=== PATIENT | male | born 1940 | race Caucasian/White ===

== ENCOUNTER → 2017-09-02 | Outpatient (CLI) | payer MEDICARE ==
[~2017-09-02] MED LIST: ALBU0.63 IH; AMLO5TAB2 PO; ASPI-555 PO; BENZ-51 PO; FENO200C PO; GUAI120L62 PO; INSLAN SQ; IPRA3AMP4 IH; LEVO500T89 PO; LIRAGLUTIDE; LISI-613 PO; METF500T6 PO; MULT-40 PO; OMEG-125 PO; OMEG1CAP6 PO; REGADENOSON 0.4 MG/5 ML PF SYG IVP SCH; SIMV40TA59 PO
== END | disposition home or self-care (01) ==
LOC: SHCH 08:52
PROVIDERS: ATTEND Internal Medicine Cardiovascular Disease
DX: I10 Essential (primary) hypertension (principal); I20.9 Angina pectoris, unspecified
CPT/HCPCS: 78452; 93017; 96374; A9500 ×2; J2785

== ENCOUNTER → 2022-01-02 | Outpatient (CLI) | payer OTHER ==
[~2022-01-02] MED LIST changes: +AMLO-257 PO; -AMLO5TAB2 PO; -ASPI-555 PO; +ASPI-556 PO; -BENZ-51 PO; +BENZ-70 PO; -FENO200C PO; +FENO200C28 PO; +IPRA3AMP24 IH; -IPRA3AMP4 IH; -LEVO500T89 PO; +LEVO500T90 PO; -LISI-613 PO; +LISI20TA24 PO; +METF-444 PO; -METF500T6 PO; -REGADENOSON 0.4 MG/5 ML PF SYG IVP SCH
== END | disposition home or self-care (01) ==
LOC: RAH 09:36
PROVIDERS: ATTEND Orthopaedic Surgery
DX: S83.232A Complex tear of medial meniscus, current injury, left knee, initial encounter (principal); M17.12 Unilateral primary osteoarthritis, left knee; M23.92 Unspecified internal derangement of left knee; X58.XXXA Exposure to other specified factors, initial encounter; Y93.89 Activity, other specified; Y92.89 Other specified places as the place of occurrence of the external cause; Y99.8 Other external cause status
CPT/HCPCS: 73721

== ENCOUNTER 2022-01-11 17:51 | Emergency (ER) | payer OTHER ==
[~2022-01-11] VITALS: Ht 172.7 cm; Wt 99.8 kg
[2022-01-11] MEDS ORDERED: LORATADINE 10 MG TABLET PO SCH (18:30)
[2022-01-11] MEDS ORDERED: SOLU-MEDROL 40MG VIAL IVP ONE (18:30)
[2022-01-11] MEDS ORDERED: FLUTICASONE PROPIONATE 50MCG/SPRAY 16 GM BOTTLE EN SCH (18:30)
[2022-01-11 18:54] LABS: BASOPHILS % (AUTO) 0.9 % (0.0-5.0); EOSINOPHILS % (AUTO) 4.5 % (0.0-8.0); LYMPHOCYTES % (AUTO) 36.5 % (21.0-51.0); MEAN CORPUSCULAR HEMOGLOBIN 28.9 pg (27.0-33.0); MEAN CORPUSCULAR HGB CONC 33.8 g/dL (32.0-36.0); MEAN CORPUSCULAR VOLUME 85.6 fL (79-99); MONOCYTES % (AUTO) 14.5 % (3.0-13.0); NEUTROPHILS % (AUTO) 43.3 % (40.0-77.0); PLATELET COUNT (AUTO) 219 K/uL (130-400); RED BLOOD CELL COUNT(AUTO) 5.26 MIL/uL (4.50-6.20); RED CELL DISTRIBUTION WIDTH 13.4 % (11.0-15.5); WHITE BLOOD COUNT (AUTO) 8.9 K/uL (4.8-10.8)
[2022-01-11 19:07] VITALS: BP 163/74
[2022-01-11 19:12] LABS: B-TYPE NATRIURETIC PEPTIDE 26 pg/mL (0-100)
[2022-01-11 19:13] LABS: ALBUMIN 3.4 g/dL (3.5-5.0); BILIRUBIN,TOTAL 0.4 mg/dL (0.2-1.0); TOTAL PROTEIN, SERUM 6.8 g/dL (6.0-8.3)
[2022-01-11] MEDS ORDERED: BENZ-39 PO (19:22)
== END 2022-01-11 19:53 | disposition home or self-care (01) ==
LOC: EDH 17:51
DX: U07.1 COVID-19 (principal); E11.9 Type 2 diabetes mellitus without complications; I10 Essential (primary) hypertension; Z79.4 Long term (current) use of insulin; Z79.899 Other long term (current) drug therapy; Z79.84 Long term (current) use of oral hypoglycemic drugs; Z79.82 Long term (current) use of aspirin; Z90.89 Acquired absence of other organs
CPT/HCPCS: 36415; 71045; 80053; 83880; 84484; 85025; 87635; 87804 ×2; 93005; 96374; 99285; C9803; J2920

== ENCOUNTER 2022-03-04 06:54 | Day surgery (SDC) | payer OTHER ==
[2022-03-02 10:30] VITALS: BP 204/106
[2022-03-02 10:42] LABS: BASOPHILS % (AUTO) 0.8 % (0.0-5.0); EOSINOPHILS % (AUTO) 3.4 % (0.0-8.0); HEMATOCRIT 45.9 % (42-54); LYMPHOCYTES % (AUTO) 34.5 % (21.0-51.0); MEAN CORPUSCULAR HEMOGLOBIN 29.4 pg (27.0-33.0); MEAN CORPUSCULAR HGB CONC 34.2 g/dL (32.0-36.0); MONOCYTES % (AUTO) 12.5 % (3.0-13.0); NEUTROPHILS % (AUTO) 48.4 % (40.0-77.0); PLATELET COUNT (AUTO) 212 K/uL (130-400); RED BLOOD CELL COUNT(AUTO) 5.34 MIL/uL (4.50-6.20); WHITE BLOOD COUNT (AUTO) 7.6 K/uL (4.8-10.8)
[2022-03-04] VITALS (16 sets, daily range): BP systolic 130–171; BP diastolic 57–84
[~2022-03-04] VITALS: Ht 172.7 cm; Wt 100.7 kg
[~2022-03-04 06:54] MED LIST changes: -ALBU0.63 IH; +ASCO500C18 PO; -BENZ-70 PO; +BETA1TAB18 PO; +CEFAZOLIN SODIUM 1 GM VIAL IVP SCH; +CHOL100046 PO; +CLON1PAT13 TD; -FENO200C28 PO; +FINA5TAB41 PO; +FISH1CAP50 PO; -GUAI120L62 PO; +INSU3INS3 SQ; -IPRA3AMP24 IH; +ISOS30TA92 PO; -LEVO500T90 PO; -LISI20TA24 PO; +LISI40TA9 PO; -MULT-40 PO; +NAPR-1023 PO; -OMEG-125 PO; -OMEG1CAP6 PO; +TAMS-1 PO; +ZINC220T4 PO
[2022-03-04] MEDS ORDERED: 0.9%NACL 1000ML 1,000 ML IV ONE (07:24)
[2022-03-04] MEDS ORDERED: DEXAMETHASONE SOD PHOSPHATE 10MG/ML 1ML VIAL ONE (08:33)
[2022-03-04] MEDS ORDERED: LIDOCAINE PF 100MG/5ML (2%) SYRINGE 5ML ONE ×3 (08:33→08:35)
[2022-03-04] MEDS ORDERED: GLYCOPYRROLATE 1 MG/5 ML SYRINGE ONE ×3 (08:34→09:34)
[2022-03-04] MEDS ORDERED: NEOSTIGMINE 5MG/5ML SYR IV ONE ×2 (08:34→09:34)
[2022-03-04] MEDS ORDERED: FENTANYL CITRATE PF 50 MCG/1 ML 2ML VIAL ONE (08:34)
[2022-03-04] MEDS ORDERED: ROCURONIUM 10MG/1ML SYR 10 MG/ML ML ONE (08:34)
[2022-03-04] MEDS ORDERED: PROPOFOL 10 MG/ML 20ML VIAL IV ONE (08:34)
[2022-03-04] MEDS ORDERED: EPHEDRINE SULFATE 50 MG/ML AMPULE ONE (09:12)
[2022-03-04] MEDS ORDERED: CEPH500B PO (09:52)
[2022-03-04] MEDS ORDERED: ACET-2079 PO (09:52)
== END 2022-03-04 11:35 | disposition home or self-care (01) ==
LOC: DAH 06:54
PROVIDERS: ATTEND Orthopaedic Surgery
DX: S83.232A Complex tear of medial meniscus, current injury, left knee, initial encounter (principal); I10 Essential (primary) hypertension; E11.9 Type 2 diabetes mellitus without complications; E78.5 Hyperlipidemia, unspecified; Z20.822 Contact with and (suspected) exposure to COVID-19; Z86.718 Personal history of other venous thrombosis and embolism; Z98.890 Other specified postprocedural states; Z79.4 Long term (current) use of insulin; Z79.82 Long term (current) use of aspirin; Z79.899 Other long term (current) drug therapy; X58.XXXA Exposure to other specified factors, initial encounter; Y93.89 Activity, other specified; Y92.89 Other specified places as the place of occurrence of the external cause; Y99.8 Other external cause status
CPT/HCPCS: 87426; 80048; 85025; 36415; 29881; 82948 ×2; A4663; A4649; J0690; J3490 ×3; J1100; J2710 ×2; J7030; J2001 ×3; J2704; A6223; A5120; A4215; A4223; A4657; A4222; A4221; A6450; J3010

== ENCOUNTER 2023-05-18 06:24 | Day surgery (SDC) | payer OTHER ==
[2023-05-14 10:24] VITALS: BP 155/69; PULSE 64; RESP 20
[2023-05-14 10:28] LABS: BASOPHILS # (AUTO) 0.05 K/uL (0.00-0.20); BASOPHILS % (AUTO) 0.7 % (0.0-5.0); EOSINOPHILS # (AUTO) 0.12 K/uL (0.00-0.70); EOSINOPHILS % (AUTO) 1.7 % (0.0-8.0); IMMATURE GRANULOCYTE ABSOLUTE 0.04 K/uL (0-1); LYMPHOCYTES % (AUTO) 28.3 % (21.0-51.0); MEAN CORPUSCULAR HEMOGLOBIN 29.7 pg (27.0-33.0); MEAN CORPUSCULAR HGB CONC 33.6 g/dL (32.0-36.0); MEAN CORPUSCULAR VOLUME 88.3 fL (79-99); MONOCYTES # (AUTO) 0.7 K/uL (0.1-1.0); MONOCYTES % (AUTO) 10.1 % (3.0-13.0); NEUTROPHILS # (AUTO) 4.2 K/uL (1.8-7.7); NEUTROPHILS % (AUTO) 58.6 % (40.0-77.0); PLATELET COUNT (AUTO) 199 K/uL (130-400); RED BLOOD CELL COUNT(AUTO) 5.32 MIL/uL (4.50-6.20); WHITE BLOOD COUNT (AUTO) 7.2 K/uL (4.8-10.8)
[2023-05-14 10:35] LABS: CREATININE 1.2 mg/dL (0.5-1.5); POTASSIUM 4.4 mmol/L (3.5-5.1)
[2023-05-14 10:36] LABS: INR 1.05 (0.85-1.15); PROTHROMBIN TIME 12.1 SEC (9.6-11.6)
[2023-05-14 10:38] LABS: PARTIAL THROMBOPLASTIN TIME 29.6 SEC (26.3-35.5)
[2023-05-18] VITALS (9 sets, daily range): BP systolic 123–149; BP diastolic 57–79; PULSE 48–65; RESP 14–19
[~2023-05-18] VITALS: Ht 167.6 cm; Wt 100.2 kg
[~2023-05-18 06:24] MED LIST changes: +APIX5TAB PO; -CEFAZOLIN SODIUM 1 GM VIAL IVP SCH; -CLON1PAT13 TD; -LIRAGLUTIDE; -METF-444 PO; +MULT-1367 PO; -NAPR-1023 PO
[2023-05-18] MEDS ORDERED: 0.9%NACL 1000ML 1,000 ML IV ONE (07:36)
[2023-05-18] MEDS ORDERED: HEPARIN 10,000 UNIT/10ML (1,000 UNIT/ML) VIAL ONE (09:57)
[2023-05-18] MEDS ORDERED: LIDOCAINE HCL 400MG/20ML VIAL ONE (09:57)
[2023-05-18] MEDS ORDERED: IODIXANOL 320 MG/ML 100 ML VIAL ONE (09:59)
[2023-05-18] MEDS ORDERED: FENTANYL CITRATE PF 50 MCG/1 ML 2ML VIAL ONE (10:39)
[2023-05-18] MEDS ORDERED: MIDAZOLAM HCL 1 MG/ML 2ML VIAL ONE (10:40)
[2023-05-18] MEDS ORDERED: CLOPIDOGREL 300MG TAB ONE (11:43)
[2023-05-18] MEDS ORDERED: GLUCAGON 1MG KIT 1 MG ML IM PRN (12:00)
[2023-05-18] MEDS ORDERED: METOPROLOL TARTRATE 1 MG/ML 5ML VIAL IV PRN (12:00)
[2023-05-18] MEDS ORDERED: 0.9%NACL 1000ML 1,000 ML IV SCH (12:00)
[2023-05-18] MEDS ORDERED: ACETAMINOPHEN WITH CODEINE 1 TAB TAB PO PRN ×2 (12:00)
[2023-05-18] MEDS ORDERED: HYDRALAZINE 20MG/ML VIAL IV PRN (12:00)
[2023-05-18] MEDS ORDERED: DEXTROSE 50%-WATER 50 ML DISP.SYRIN IV PRN (12:00)
[2023-05-18] MEDS ORDERED: NITROGLYCERIN 0.4 MG SL TAB SL PRN (12:00)
[2023-05-18] MEDS ORDERED: INSULIN HUMULIN R 100 UNIT/ML 3ML SQ SCH (16:30)
== END 2023-05-18 15:55 | disposition home or self-care (01) ==
LOC: DAH 06:24
PROVIDERS: ATTEND Internal Medicine Cardiovascular Disease
DX: I87.1 Compression of vein (principal); I87.2 Venous insufficiency (chronic) (peripheral); I82.412 Acute embolism and thrombosis of left femoral vein; E11.9 Type 2 diabetes mellitus without complications; I10 Essential (primary) hypertension; E78.5 Hyperlipidemia, unspecified; E66.9 Obesity, unspecified; Z68.33 Body mass index [BMI] 33.0-33.9, adult; Z82.3 Family history of stroke; Z83.3 Family history of diabetes mellitus; Z80.9 Family history of malignant neoplasm, unspecified; Z79.4 Long term (current) use of insulin; Z79.82 Long term (current) use of aspirin; Z79.899 Other long term (current) drug therapy; Z98.890 Other specified postprocedural states
CPT/HCPCS: 80048; 85025; 85610; 85730; 36415; 37238; 37239 ×2; 36012; 37252; 37253 ×5; 82948 ×2; 75822; 96360; 96361; C1876 ×3; C1725; C1769 ×2; C1894 ×3; C1753; J3010; J3490; J7030; J1644 ×2; J2250; Q9967; A4215; A4222; A4221; A4663; A4216; A4606; A4223 ×3; 99156; 99157